=== PATIENT | female | born 1995 | race Asian ===

== ENCOUNTER 2022-02-05 17:13 | Observation (INO) | payer OTHER ==
[~2022-02-05] VITALS: Ht 160 cm; Wt 50.9 kg
[2022-02-05 17:44] LABS: COLLECTION METHOD CLEAN CATCH
[2022-02-05 17:49] LABS: BASO % 0.3 % (0.0-2.0); EOS # 0.2 K/mm3 (0.0-0.7); EOS % 1.4 % (0.0-4.0); GRAN # 7.7 K/mm3 (1.4-6.5); GRAN % 72.1 % (42.2-75.2); HEMATOCRIT 44.5 % (37.0-47.0); HEMOGLOBIN 14.8 g/dl (12.5-16.0); LYMPH # 2.3 K/mm3 (1.2-3.4); LYMPH % 21.1 % (20.0-51.0); MEAN CELL VOLUME 95 fl (80.0-100.0); MEAN CORPUSCULAR HEMOGLOBIN 32 pg (27-31); MEAN CORPUSCULAR HGB CONC 33 g/dl (33.0-37.0); MEAN PLATELET VOLUME 9.8 fl (7.4-10.4); MONO # 0.5 K/mm3 (0.1-0.6); MONO % 4.7 % (1.7-9.3); PLATELET COUNT 244 K/mm3 (130-400); REDCELL DISTRIBUTION WIDTH-CV 12.5 % (11.5-14.5)
[2022-02-05 17:52] LABS: MUCOUS Present (NOT PRESENT); PH 6 (5-8); SQUAMOUS EPITHELIAL 0-2 /hpf (0-10); URINE APPEARANCE Hazy (CLEAR/HAZY); URINE BACTERIA None Seen /hpf (NONE SEEN); URINE BILIRUBIN Negative (NEGATIVE); URINE BLOOD 2+ (NEGATIVE); URINE COLOR Yellow (YELLOW); URINE GLUCOSE Negative (NEGATIVE); URINE KETONE Negative (NEGATIVE); URINE LEUKOCYTE ESTERASE Negative (NEGATIVE); URINE NITRATE Negative (NEGATIVE); URINE PROTEIN(semi-quant) Negative (NEGATIVE); URINE RBC >50 /hpf (0-2)
[2022-02-05 18:07] LABS: ALBUMIN 4.8 gm/dL (3.5-5.0); BILIRUBIN,TOTAL 0.6 mg/dL (0.2-1.2); CALCIUM 9.2 mg/dL (8.4-10.2); CREATININE, serum 0.79 mg/dL (0.57-1.11); POTASSIUM 3.3 mmol/L (3.5-4.5)
[2022-02-05] MEDS ORDERED: MOTRIN 800800 MG/TAB PO (18:54)
[2022-02-05 19:00] VITALS: BP 114/78; PULSE 99; TEMP 98.9
--- NOTE | 2022-02-05 19:00 | NUR ---
1900 - PATIENT ARRIVES TO AND WOMENS FROM ER BY STRETCHER ACCOMPANIED BY SPOUSE AND FURNITURE RESTORER. CONSENTS REVIEWED AND SIGNED. QUESTIONS ANSWERED. MAMTA MINOR AT BEDSIDE. 1905 - VITALS SIGNS OBTAINED AND STABLE. LABS DRAWN ORDERED. 1909 - PATIENT TRANSFERRED TO OR.
[2022-02-05 19:42] VITALS: BP 106/73; PULSE 77; TEMP 98.6
[2022-02-05 19:45] VITALS: BP 110/72; PULSE 76
[2022-02-05 20:00] VITALS: BP 113/66; PULSE 74
[2022-02-05 20:15] VITALS: BP 110/70; PULSE 68
[2022-02-05 20:30] VITALS: BP 118/70; PULSE 75
--- NOTE | 2022-02-05 21:20 | NUR ---
2114 - PATIENT AND SPOUSE EDUCATED ON DISCHARGE INSTRUCTIONS. QUESTIONS ANSWERED. 2119 - PATIENT DISCHARGED HOME WITH SPOUSE. PATIENT TAKEN TO ENTRANCE VIA WHEELCHAIR ACCOMPANIED BY SPOUSE AND RN.
== END 2022-02-05 21:20 | disposition home or self-care (01) ==
LOC: COL.ER 17:13 → OB 18:33
PROVIDERS: Emergency Medicine; ADMIT Obstetrics & Gynecology
DX: O03.1 Delayed or excessive hemorrhage following incomplete spontaneous abortion (principal)
CPT/HCPCS: J1885; J2405; J2704; J3010; J7120